=== PATIENT | male | born 1930 | race Hispanic/Latino ===

== ENCOUNTER 2020-10-21 16:57 | Inpatient (IN) | payer MEDICARE, BC ==
[2020-10-21] MEDS ORDERED: Furosemide 40 MG/4 ML VIAL ONE (17:44)
[2020-10-21 18:00] LABS: #Basophils 0.1 thou/uL (0.0-0.2); #Eosinphils 0.1 thou/uL (0.0-0.7); #Lymphocytes 2.8 thou/uL (1.20-3.40); #Monocytes 1.1 thou/uL (0.11-0.59); #Neutrophils 12.9 thou/uL (1.40-6.50); %Basophils 0.4 % (0.0-1.0); %Eosinophils 0.5 % (0.0-10.0); %Lymphocytes 16.8 % (21.0-51.0); %Monocytes 6.4 % (0.0-10.0); Hemoglobin 14.1 g/dL (14.0-18.0); Mean Corpuscular HGB CONC 32.3 g/dL (32.0-36.0); Mean Corpuscular Volume 89.8 fL (78.0-98.0); Mean Platelet Volume 9.3 fL (7.4-10.4); Platelet Count 220 thou/uL (130-400); RBC Distribution Width 14.3 % (11.5-14.5); Red Blood Cell (RBC) Count 4.86 mill/uL (4.70-6.10); White Blood Cell (WBC) Count 16.9 thou/uL (4.8-10.8)
[2020-10-21 18:23] LABS: ALT (SGPT) 31 U/L (8-55); AST (SGOT) 29 U/L (5-34); Albumin 3.9 g/dL (3.4-4.8); Alkaline Phosphatase 89 U/L (40-110); Anion Gap 17 mmol/L (10-20); BUN (Urea Nitrogen) 20 mg/dL (8.4-25.7); Bilirubin, Total 0.5 mg/dL (0.2-1.2); Calc. Creatinine Clearance 0 mL/min (70-130); Calcium 8.8 mg/dL (7.8-10.44); Carbon Dioxide 22 mmol/L (23-31); Chloride 106 mmol/L (98-107); Globulin 3.2 g/dL (2.4-3.5); Glucose 97 mg/dL (83-110); Lipase 29 U/L (8-78); Potassium 3.9 mmol/L (3.5-5.1); Protein, Total 7.1 g/dL (5.8-8.1); Sodium 141 mmol/L (136-145)
[2020-10-21 18:46] LABS: CKMB 5.6 ng/mL (0-6.6)
[2020-10-21] MEDS ORDERED: Vancomycin 1 GM/200 ML BAG ONE (19:16)
[2020-10-21 19:18] LABS: Bilirubin Negative (Negative); Blood, Urine Negative (Negative); Clarity Clear (Clear); Glucose, Urine (Dipstick) Normal (Negative); Ketone, Urine Negative (Negative); Leukocyte Negative Leu/uL (Negative); Nitrite Negative (Negative); Protein, Urine (Dipstick) Negative (Neg-Trace); Specific Gravity, Urine 1.013 (1.002-1.036); Urobilinogen Normal mg/dL (Less than 2)
[2020-10-21 19:30] LABS: SARS-CoV-2 NAA Rapid Test Not Detected (NotDetected)
[2020-10-21] MEDS ORDERED: Ondansetron PF 4 MG/2 ML Vial IVP PRN (21:30)
[2020-10-21] MEDS ORDERED: Ondansetron ODT 4 MG TAB SL PRN (21:30)
[2020-10-21] MEDS ORDERED: Acetaminophen 325 MG TAB PO PRN (21:30)
[2020-10-21] MEDS ORDERED: Acetaminophen 650 MG Suppository PR PRN (22:37)
[2020-10-22 00:26] LABS: Troponin I 0.104 ng/mL (< 0.028)
[2020-10-22 01:32] VITALS: BMI 27.5
[2020-10-22 03:34] LABS: #Lymphocytes 0.5 thou/uL (1.20-3.40); #Monocytes 0.1 thou/uL (0.11-0.59); #Neutrophils 13.5 thou/uL (1.40-6.50); %Eosinophils 0.1 % (0.0-10.0); %Lymphocytes 3.6 % (21.0-51.0); %Neutrophils 95.3 % (42.0-75.0); Hemoglobin 12.3 g/dL (14.0-18.0); Mean Corpuscular HGB CONC 32.7 g/dL (32.0-36.0); Mean Corpuscular Hemoglobin 28.9 pg (27.0-31.0); Mean Corpuscular Volume 88.4 fL (78.0-98.0); Mean Platelet Volume 9.5 fL (7.4-10.4); Platelet Count 169 thou/uL (130-400); RBC Distribution Width 14.1 % (11.5-14.5); Red Blood Cell (RBC) Count 4.26 mill/uL (4.70-6.10); White Blood Cell (WBC) Count 14.1 thou/uL (4.8-10.8)
[2020-10-22 03:44] LABS: Anion Gap 17 mmol/L (10-20); BUN (Urea Nitrogen) 20 mg/dL (8.4-25.7); Calc. Creatinine Clearance 45 mL/min (70-130); Calcium 8.4 mg/dL (7.8-10.44); Carbon Dioxide 23 mmol/L (23-31); Cardiac Risk 2.6 (Less than 4.5); Chloride 103 mmol/L (98-107); Cholesterol 116 mg/dl (< 200 Desired); Glucose 160 mg/dL (83-110); HDL Cholesterol 44 mg/dL (>60 Neg Risk); LDL Cholesterol, Calculated 65 mg/dL; Sodium 139 mmol/L (136-145); Triglycerides 37 mg/dL (Less than 150)
[2020-10-22 04:06] LABS: CKMB 5.2 ng/mL (0-6.6)
[2020-10-22] MEDS: Furosemide 20 MG/2 ML VIAL SLOW IVP SCH ×2 (06:28→14:09)
[2020-10-22] MEDS: Famotidine/PF 20 mg/2ml Vial SLOW IVP SCH ×2 (10:09→21:14)
[2020-10-22] MEDS: Piperacillin/Tazobactam 3.375 GM in Sodium Chloride 0.9% 100 ML IVPB SCH ×2 (17:51→23:21)
[2020-10-22] MEDS ORDERED: Vancomycin 1 GM in Premix Bag 1 BAG IVPB SCH (20:00)
[2020-10-22] MEDS ORDERED: Atorvastatin Calcium 10 MG TAB PO SCH (21:00)
[2020-10-22] MEDS ORDERED: Simvastatin 20 MG TAB PO SCH (21:00)
[2020-10-22] MEDS: Metoprolol Tartrate 25 MG TAB PO SCH (21:09)
[2020-10-23 04:36] LABS: #Eosinphils 0.1 thou/uL (0.0-0.7); #Lymphocytes 1.3 thou/uL (1.20-3.40); #Monocytes 0.8 thou/uL (0.11-0.59); #Neutrophils 10.1 thou/uL (1.40-6.50); %Basophils 0.1 % (0.0-1.0); %Eosinophils 0.5 % (0.0-10.0); %Lymphocytes 10.6 % (21.0-51.0); %Monocytes 6.3 % (0.0-10.0); %Neutrophils 82.5 % (42.0-75.0); Hemoglobin 11.7 g/dL (14.0-18.0); Mean Corpuscular HGB CONC 33.6 g/dL (32.0-36.0); Mean Corpuscular Hemoglobin 29.9 pg (27.0-31.0); Mean Corpuscular Volume 89.1 fL (78.0-98.0); Mean Platelet Volume 9.2 fL (7.4-10.4); Platelet Count 160 thou/uL (130-400); RBC Distribution Width 14.1 % (11.5-14.5); Red Blood Cell (RBC) Count 3.92 mill/uL (4.70-6.10); White Blood Cell (WBC) Count 12.2 thou/uL (4.8-10.8)
[2020-10-23 04:52] LABS: Anion Gap 8 mmol/L (10-20); BUN (Urea Nitrogen) 26 mg/dL (8.4-25.7); Calc. Creatinine Clearance 42 mL/min (70-130); Calcium 8.2 mg/dL (7.8-10.44); Carbon Dioxide 29 mmol/L (23-31); Chloride 105 mmol/L (98-107); Glucose 100 mg/dL (83-110); Potassium 3.4 mmol/L (3.5-5.1); Sodium 139 mmol/L (136-145)
[2020-10-23] MEDS ORDERED: Potassium Chloride 20 MEQ TAB PO SCH (06:15)
[2020-10-23] MEDS: Furosemide 20 MG/2 ML VIAL SLOW IVP SCH (06:31)
[2020-10-23] MEDS: Piperacillin/Tazobactam 3.375 GM in Sodium Chloride 0.9% 100 ML IVPB SCH (06:31)
[2020-10-23] MEDS: Famotidine/PF 20 mg/2ml Vial SLOW IVP SCH (08:42)
[2020-10-23] MEDS: Metoprolol Tartrate 25 MG TAB PO SCH (08:43)
[2020-10-23 13:01] VITALS: BP 152/66; TEMP 97.1
== END 2020-10-23 12:50 | disposition home health service (06) | DRG 871 ==
LOC: ERS 16:57 → 2NO 20:07
PROVIDERS: ADMIT Student in an Organized Health Care Education/Training Program; ATTEND Student in an Organized Health Care Education/Training Program
DX: A41.9 Sepsis, unspecified organism (principal); J69.0 Pneumonitis due to inhalation of food and vomit; I50.33 Acute on chronic diastolic (congestive) heart failure; I48.20 Chronic atrial fibrillation, unspecified; E78.5 Hyperlipidemia, unspecified; Z20.822 Contact with and (suspected) exposure to COVID-19; I11.0 Hypertensive heart disease with heart failure; G20 Parkinson's disease; E78.00 Pure hypercholesterolemia, unspecified; R13.10 Dysphagia, unspecified; R77.8 Other specified abnormalities of plasma proteins; I25.10 Atherosclerotic heart disease of native coronary artery without angina pectoris; Z95.0 Presence of cardiac pacemaker; Z95.1 Presence of aortocoronary bypass graft; Z79.82 Long term (current) use of aspirin; Z79.899 Other long term (current) drug therapy; Z95.5 Presence of coronary angioplasty implant and graft
CPT/HCPCS: 0240U; 36415; 71045; 80048; 80053; 80061; 81003; 82274; 82553; 83605; 83690; 83735; 83880; 84484; 85025; 87040; 93005; 93306; 94760; 96365; 96367; 96375; J1940; J1956; J2543; J3370; J3490; S0028

== ENCOUNTER 2021-04-28 04:50 | Observation (INO) | payer MEDICARE, BC ==
[2021-04-28 05:28] LABS: #Eosinphils 0.2 thou/uL (0.0-0.7); #Lymphocytes 1.7 thou/uL (1.20-3.40); #Monocytes 0.8 thou/uL (0.11-0.59); %Basophils 0.4 % (0.0-1.0); %Eosinophils 2.8 % (0.0-10.0); %Lymphocytes 22.1 % (21.0-51.0); %Monocytes 10.3 % (0.0-10.0); %Neutrophils 64.4 % (42.0-75.0); Hemoglobin 12.8 g/dL (14.0-18.0); Mean Corpuscular HGB CONC 32.9 g/dL (32.0-36.0); Mean Corpuscular Hemoglobin 29.8 pg (27.0-31.0); Mean Corpuscular Volume 90.5 fL (78.0-98.0); Mean Platelet Volume 8.3 fL (7.4-10.4); Platelet Count 208 thou/uL (130-400); RBC Distribution Width 13.6 % (11.5-14.5); Red Blood Cell (RBC) Count 4.31 mill/uL (4.70-6.10); White Blood Cell (WBC) Count 7.8 thou/uL (4.8-10.8)
[2021-04-28 05:46] LABS: ALT (SGPT) 14 U/L (8-55); AST (SGOT) 34 U/L (5-34); Albumin 3.7 g/dL (3.4-4.8); Alkaline Phosphatase 80 U/L (40-110); Anion Gap 10 mmol/L (10-20); BUN (Urea Nitrogen) 28 mg/dL (8.4-25.7); Bilirubin, Total 0.3 mg/dL (0.2-1.2); Calc. Creatinine Clearance 0 mL/min (70-130); Carbon Dioxide 28 mmol/L (23-31); Chloride 107 mmol/L (98-107); Glucose 101 mg/dL (83-110); Potassium 4.2 mmol/L (3.5-5.1); Protein, Total 6.7 g/dL (5.8-8.1); Sodium 141 mmol/L (136-145)
[2021-04-28 06:09] LABS: CKMB 3.2 ng/mL (0-6.6)
[2021-04-28] MEDS ORDERED: Aspirin 81 mg Enteric Coated Tablet ONE (06:48)
[2021-04-28 08:40] VITALS: BMI 23.5
[2021-04-28] MEDS ORDERED: Nitroglycerin 0.4 MG TAB (25 Tab Bottle) SL PRN (08:56)
[2021-04-28] MEDS ORDERED: Acetaminophen 325 MG TAB PO PRN (08:56)
[2021-04-28 12:31] LABS: Troponin I 0.046 ng/mL (< 0.028)
[2021-04-28 14:55] LABS: SARS-CoV-2 PCR by NAA Not Detected (NotDetected)
[2021-04-28] MEDS ORDERED: hydrALAZINE 20 MG/ML VIAL SLOW IVP PRN (19:03)
[2021-04-28] MEDS: Carbidopa/Levodopa 25-100 mg Tablet PO SCH (20:21)
[2021-04-28] MEDS: Metoprolol Tartrate 25 MG TAB PO SCH (20:21)
[2021-04-28] MEDS ORDERED: Atorvastatin Calcium 20 MG TAB PO SCH (21:00)
[2021-04-29 03:03] VITALS: TEMP 97.5
[2021-04-29 04:40] LABS: #Eosinphils 0.3 thou/uL (0.0-0.7); #Lymphocytes 1.3 thou/uL (1.20-3.40); #Monocytes 0.5 thou/uL (0.11-0.59); #Neutrophils 4.2 thou/uL (1.40-6.50); %Basophils 0.6 % (0.0-1.0); %Eosinophils 4.7 % (0.0-10.0); %Lymphocytes 20.7 % (21.0-51.0); %Monocytes 8.4 % (0.0-10.0); %Neutrophils 65.6 % (42.0-75.0); Hemoglobin 12.9 g/dL (14.0-18.0); Mean Corpuscular HGB CONC 33.5 g/dL (32.0-36.0); Mean Corpuscular Hemoglobin 29.9 pg (27.0-31.0); Mean Corpuscular Volume 89.1 fL (78.0-98.0); Mean Platelet Volume 8.5 fL (7.4-10.4); Platelet Count 194 thou/uL (130-400); RBC Distribution Width 13.5 % (11.5-14.5); Red Blood Cell (RBC) Count 4.32 mill/uL (4.70-6.10); White Blood Cell (WBC) Count 6.5 thou/uL (4.8-10.8)
[2021-04-29 04:44] LABS: Anion Gap 12 mmol/L (10-20); BUN (Urea Nitrogen) 21 mg/dL (8.4-25.7); Calc. Creatinine Clearance 50 mL/min (70-130); Calcium 8.6 mg/dL (7.8-10.44); Carbon Dioxide 24 mmol/L (23-31); Cardiac Risk 3.7 (Less than 4.5); Chloride 107 mmol/L (98-107); Cholesterol 119 mg/dl (< 200 Desired); Glucose 90 mg/dL (83-110); HDL Cholesterol 32 mg/dL (>60 Neg Risk); LDL Cholesterol, Calculated 71 mg/dL; Potassium 4.1 mmol/L (3.5-5.1); Sodium 139 mmol/L (136-145); Triglycerides 79 mg/dL (Less than 150)
[2021-04-29] MEDS: Metoprolol Tartrate 25 MG TAB PO SCH (08:56)
[2021-04-29] MEDS: Carbidopa/Levodopa 25-100 mg Tablet PO SCH ×2 (08:56→15:40)
[2021-04-29] MEDS ORDERED: Aspirin Chewable 81 MG TAB PO SCH (09:00)
[2021-04-29] MEDS ORDERED: FLU VACC QS2021-22(65YR UP)/PF 240 MCG/0.7 ML SYRINGE IM ONE (10:30)
[2021-04-29 11:14] VITALS: BP 129/60
[2021-04-29 15:31] LABS: Bilirubin Negative (Negative); Blood, Urine Negative (Negative); Clarity Clear (Clear); Glucose, Urine (Dipstick) Normal (Negative); Ketone, Urine Negative (Negative); Leukocyte Negative Leu/uL (Negative); Nitrite Negative (Negative); Protein, Urine (Dipstick) 10 mg/dL (Neg-Trace); Specific Gravity, Urine 1.026 (1.002-1.036); Urobilinogen Normal mg/dL (Less than 2)
[2021-04-30] MEDS ORDERED: Cyanocobalamin (Vitamin B-12) 1,000 MCG TAB PO SCH (09:00)
== END 2021-04-29 15:50 | disposition home or self-care (01) ==
LOC: ERS 04:50 → SUATTDRO 04:50 → 2NO 06:53
PROVIDERS: ADMIT Internal Medicine; ATTEND Internal Medicine
DX: R07.89 Other chest pain (principal); R77.8 Other specified abnormalities of plasma proteins; I65.22 Occlusion and stenosis of left carotid artery; I25.10 Atherosclerotic heart disease of native coronary artery without angina pectoris; I10 Essential (primary) hypertension; E78.5 Hyperlipidemia, unspecified; G20 Parkinson's disease; K44.9 Diaphragmatic hernia without obstruction or gangrene; I08.3 Combined rheumatic disorders of mitral, aortic and tricuspid valves; D64.89 Other specified anemias; M47.812 Spondylosis without myelopathy or radiculopathy, cervical region; R94.31 Abnormal electrocardiogram [ECG] [EKG]; Z20.822 Contact with and (suspected) exposure to COVID-19; Z95.1 Presence of aortocoronary bypass graft; Z79.82 Long term (current) use of aspirin; Z79.899 Other long term (current) drug therapy; Z95.0 Presence of cardiac pacemaker; W19.XXXA Unspecified fall, initial encounter; E78.00 Pure hypercholesterolemia, unspecified
CPT/HCPCS: 70450; 71250; 72125; 80048; 80053; 80061; 81003; 82553; 82607; 84443; 84484 ×2; 85025 ×2; 93005; 93306; 93880; 97110; 97116 ×2; 97139 ×5; 97535; 99285; U0003; U0005; 36415; G0378